=== PATIENT | male | born 1975 | race African-American/Black ===

== ENCOUNTER 2025-11-08 00:58 | Emergency (ER) | payer MEDICAID, OTHER ==
[~2025-11-08] VITALS: Ht 190.5 cm; Wt 95.2 kg
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
[2025-11-08 02:02] LABS: Hematocrit 42.5 % (41.0-53.0); Hemoglobin 14.1 g/dL (13.5-17.5); Mean Corpuscular Hemoglobin 28.6 pg (28.0-32.0); Mean Corpuscular Volume 86.1 fL (80.0-100.0); Nucleated Red Blood Cells % 0.1 %
[2025-11-08 02:21] LABS: Alanine Aminotransferase 34 U/L (7-40); Albumin 4.4 g/dL (3.2-4.8); Alkaline Phosphatase 64 U/L (46-116); Anion Gap 12 (5-15); BUN/Creatinine Ratio 14.3 (10.0-20.0); Bilirubin, Total 0.7 mg/dL (0.2-1.0); Blood Urea Nitrogen 15 mg/dL (9-23); Calcium 9.5 mg/dL (8.7-10.4); Carbon Dioxide 24 mmol/L (20-31); Chloride 101 mmol/L (98-107); Potassium 3.8 mmol/L (3.5-5.1); Sodium 137 mmol/L (136-145); Total Protein 7.6 g/dL (5.7-8.2)
[2025-11-08 02:23] LABS: Glucose 310 mg/dL (74-106)
[2025-11-08] MEDS ORDERED: SODIUM CHLORIDE 0.9% 1,000 ML IV ONE (03:30)
[2025-11-08 03:36] VITALS: RESP 18; O2SAT 98
[2025-11-08 03:50] LABS: INR 0.94 (0.9-1.15); Partial Thromboplastin Time 26.4 SEC (24.5-34.5); Prothrombin Time 10.0 sec (9.3-11.8)
--- NOTE | 2025-11-08 04:10 | ECG ---
[facility] Test Date: 2025-11-08 Test Time: 04:08:39 Pat Name: MECCA YUSUF Department: Room: Gender: M Collections Analyst: TASHIA : 1975 Requested By: CHICHO LARRY Order Number: [id number] Reading MD: Measurements Intervals [place] Rate: 106 P: 55 VT: 175 QRS: 49 QRSD: 91 T: 54 QT: 333 QTc: 443 Interpretive Statements Sinus tachycardia Please click the below link to view image of tracing.
[2025-11-08] MEDS ORDERED: FAMO20TA10 PO (04:11)
[2025-11-08] MEDS ORDERED: SITA100T7 PO (04:11)
[2025-11-08] MEDS ORDERED: METF-372 PO (04:11)
[2025-11-08 04:27] VITALS: BP 130/82; PULSE 106; RESP 20; TEMP 98.1; O2SAT 100
== END 2025-11-08 04:28 | disposition home or self-care (01) ==
LOC: ER 00:58
DX: R07.89 Other chest pain (principal); E11.65 Type 2 diabetes mellitus with hyperglycemia; Z90.49 Acquired absence of other specified parts of digestive tract; Z79.899 Other long term (current) drug therapy
CPT/HCPCS: 36415; 80053; 83880; 84484; 85025; 85379; 85610; 85730; 93005